=== PATIENT | female | born 1970 | race Caucasian/White ===

== ENCOUNTER 2017-11-14 21:56 | Emergency (ER) | payer OTHER ==
[~2017-11-14] VITALS: Ht 160 cm; Wt 49.9 kg
[~2017-11-14 21:56] MED LIST: CITA10TA17 PO; CITA40TA22 PO; SUMA100T PO
[2017-11-14 22:00] VITALS: BP 122/68
[2017-11-14] MEDS ORDERED: oxyCODONE/APAP (5/325 MG) 1 UDTAB TABLET ONE (22:54)
[2017-11-14] MEDS ORDERED: oxyCODONE/APAP (5/325 MG) 1 UDTAB TABLET PO ONE (23:00)
[2017-11-14] MEDS ORDERED: HYDROCODONE/APAP 5/325MG 1 EACH TABLET PO ONE (23:00)
== END 2017-11-14 23:55 | disposition home or self-care (01) ==
LOC: ER 21:57
DX: S93.401A Sprain of unspecified ligament of right ankle, initial encounter (principal); F42.8 Other obsessive-compulsive disorder; Z98.890 Other specified postprocedural states; W01.0XXA Fall on same level from slipping, tripping and stumbling without subsequent striking against object, initial encounter; Y93.89 Activity, other specified; Y92.89 Other specified places as the place of occurrence of the external cause; Y99.8 Other external cause status
CPT/HCPCS: 29515; 73610; 99284; A4606; Z7610

== ENCOUNTER 2017-11-26 22:57 | Emergency (ER) | payer OTHER ==
[~2017-11-26] VITALS: Ht 160 cm; Wt 49.9 kg
[2017-11-26 23:08] VITALS: BP 128/86
[2017-11-26] MEDS ORDERED: oxyCODONE/APAP (5/325 MG) 1 UDTAB TABLET ONE (23:55)
[2017-11-27] MEDS ORDERED: oxyCODONE/APAP (5/325 MG) 1 UDTAB TABLET PO ONE
== END 2017-11-26 23:59 | disposition home or self-care (01) ==
LOC: ER 22:57
DX: S93.491A Sprain of other ligament of right ankle, initial encounter (principal); Z98.890 Other specified postprocedural states; Z88.1 Allergy status to other antibiotic agents; Z88.6 Allergy status to analgesic agent; X58.XXXA Exposure to other specified factors, initial encounter; Y93.89 Activity, other specified; Y92.89 Other specified places as the place of occurrence of the external cause; Y99.8 Other external cause status
CPT/HCPCS: A4606; Z7610

== ENCOUNTER 2018-10-15 20:40 | Emergency (ER) | payer OTHER ==
[~2018-10-15] VITALS: Ht 160 cm; Wt 49.9 kg
--- NOTE | 2018-10-15 21:06 | NUR ---
PT [id number] AND PD FROM HOME C/C OD ON UNKNOWN AMOUNT OF TRAZADONE AND DIAZAPAM, PT IS AAOX2, NOT IN RESPIRATORY DISTRESS, APPEARS AGITATED AND UNCOOPERATIVE, HOOKED TO MONITOR, KEPT RESTED AND COMFORTABLE, WILL CONTINUE TO MONITOR.
--- NOTE | 2018-10-15 21:20 | NUR ---
SEEN AND EXAMINED BY DR ANAYA
[2018-10-15 21:41] LABS: BASOPHILS % (AUTO) 0.5 % (0.0-2.0); EOSINOPHILS % (AUTO) 1.2 % (0.0-6.0); HEMATOCRIT 41 % (33-45); HEMOGLOBIN 14.1 g/dL (11.5-14.8); LYMPHOCYTES # (AUTO) 0.9 /CMM (0.8-4.8); LYMPHOCYTES % (AUTO) 14.7 % (20.0-44.0); MEAN CORPUSCULAR HGB CONC 34 g/dl (31.0-36.0); MEAN CORPUSCULAR VOLUME 96 fL (82-100); MONOCYTES # (AUTO) 0.4 /CMM (0.1-1.30); MONOCYTES % (AUTO) 6.5 % (2.0-12.0); NEUTROPHILS # (AUTO) 4.7 /CMM (1.8-8.9); NEUTROPHILS % (AUTO) 77.1 % (43.0-81.0); PLATELET COUNT (AUTO) 162 /CMM (150-450); RED BLOOD CELL COUNT(AUTO) 4.28 MIL/uL (4.0-5.2); WHITE BLOOD COUNT (AUTO) 6.1 K/uL (4.3-11.0)
[2018-10-15 21:54] LABS: CALCIUM, SERUM 9.4 mg/dL (8.5-10.1); CARBON DIOXIDE 29 mmol/L (21-32); CHLORIDE 105 mmol/L (98-107); CREATININE 0.8 mg/dL (0.6-1.3); GLUCOSE 104 mg/dL (74-106); POTASSIUM 3.4 mmol/L (3.5-5.1); SODIUM SERUM 139 mmol/L (136-145); UREA NITROGEN, BLOOD 15 mg/dL (7-18)
[2018-10-15 21:59] LABS: ALANINE AMINOTRANSFERASE 20 U/L (12-78); ALCOHOL, BLOOD < 3 mg/dL (0-0); ALKALINE PHOSPHATASE 78 U/L (46-116); ASPARTATE AMINOTRANSFERASE 16 U/L (15-37); BILIRUBIN,DIRECT 0.1 mg/dL (0.0-0.2); BILIRUBIN,TOTAL 0.4 mg/dL (0.2-1.0); TOTAL PROTEIN, SERUM 6.9 g/dL (6.4-8.2)
[2018-10-15 22:00] LABS: ACETAMINOPHEN < 10 ug/ml (10-30); SALICYLATE 1.3 mg/dL (2.8-20.0)
--- NOTE | 2018-10-15 22:48 | NUR ---
URINE SPECIMEN COLLECTED AND SENT TO LAB.
[2018-10-15 22:59] LABS: APPEARANCE,URINE Clear (CLEAR); BILIRUBIN,URINE Negative (NEGATIVE); BLOOD, URINE Trace-intact Ery/uL (NEGATIVE); COLOR,URINE Yellow (YELLOW); KETONES,URINE 15 (NEGATIVE); LEUKOCYTE ESTERASE ,URINE Trace (NEGATIVE); NITRITE, URINE Negative (NEGATIVE); PROTEIN,URINE Negative (NEGATIVE); UGLUCOSE Negative (NEGATIVE); UROBILINOGEN,URINE 0.2 EU/dL (0.2)
[2018-10-15 23:09] LABS: BACTERIA,URINE Rare /HPF (None Seen); SQUAMOUS EPITHELIAL CELL,UR Few /HPF (None Seen)
--- NOTE | 2018-10-15 23:40 | NUR ---
[facility] FOR EVAL.
--- NOTE | 2018-10-15 23:57 | NUR ---
REPORT GIVEN TO ISABELLA JEFFRIES FOR [facility]. AWAITING [facility] FOR EVAL.
--- NOTE | 2018-10-15 23:59 | NUR ---
REPORT REC'D FROM RL MARTÍNEZ RN.
--- NOTE | 2018-10-16 00:43 | NUR ---
DARVIN CHANDRA, ARRIVED AND IS AT THE BEDSIDE SPEAKING TO THE PT.
[2018-10-16 01:01] VITALS: BP 118/72
--- NOTE | 2018-10-16 01:01 | NUR ---
Patient discharged to home in stable condition. Written and verbal after care instructions given. Patient verbalizes understanding of instruction. PT REC'D A [facility]. [facility]. PT IS AWAITING P/U
== END 2018-10-16 01:02 | disposition home or self-care (01) ==
LOC: ER 21:12
DX: F32.9 Major depressive disorder, single episode, unspecified (principal); F42.8 Other obsessive-compulsive disorder; Z98.890 Other specified postprocedural states; Z88.6 Allergy status to analgesic agent; Z88.8 Allergy status to other drugs, medicaments and biological substances; Z79.899 Other long term (current) drug therapy
CPT/HCPCS: 36415; 80048; 80076; 80305; 80307; 80329; 81001; 84702; 85025; 93005; 99284; A4606; G0480; 81000-TC